=== PATIENT | female | born 1955 | race Caucasian/White ===

== ENCOUNTER 2018-07-07 18:31 | Inpatient (IN) | payer OTHER, MEDICAID | END 2018-07-09 11:36 | disposition home or self-care (01) | LOC: ER 18:31 → PCU 3S 22:06 | DX: E11.10 Type 2 diabetes mellitus with ketoacidosis without coma (principal); N17.9 Acute kidney failure, unspecified ==

== ENCOUNTER 2018-07-21 08:55 | Emergency (ER) | payer OTHER, MEDICAID ==
[~2018-07-21] VITALS: Ht 182.9 cm; Wt 55.0 kg
[~2018-07-21 08:55] MED LIST: ATOR40TA72 PO; GABA-532 PO; INSU100V11 SQ; LANTUS SQ; VARE1TAB22 PO
[2018-07-21] MEDS ORDERED: ondansetron/PF 4mg/2ml inj IV ONE (09:00)
[2018-07-21] MEDS ORDERED: normal saline 1000ML IV soln IVB ONE (09:00)
[2018-07-21 09:52] LABS: BASOPHILS % (AUTO) 0.2 % (0-1); EOSINOPHILS % (AUTO) 0.1 % (0-6); HEMATOCRIT 43.2 % (35.0-45.0); HEMOGLOBIN 14.8 g/dl (12.0-16.0); LYMPHOCYTES # (AUTO) 0.7 X10'3 (1.1-4.8); LYMPHOCYTES % (AUTO) 4.8 % (21-51); MEAN CORPUSCULAR HEMOGLOBIN 32.4 PG (27.0-31.0); MEAN CORPUSCULAR HGB CONC 34.4 g/dL (33.0-36.5); MEAN CORPUSCULAR VOLUME 94.4 FL (78-98); MEAN PLATELET VOLUME 7.6 FL (7.4-10.4); MONOCYTES # (AUTO) 0.3 X10'3 (0-0.9); MONOCYTES % (AUTO) 1.8 % (2-12); NEUTROPHILS # (AUTO) 13.4 X10'3 (1.8-7.7); NEUTROPHILS % (AUTO) 93.1 % (42-75); PLATELET COUNT 444 X10'3 (140-440); RED BLOOD COUNT 4.58 X10'6 (4.20-5.60); WHITE BLOOD COUNT 14.4 X10'3 (4.5-11.0)
[2018-07-21] MEDS ORDERED: insulin regular, human 10 units/0.1 ml syringe IV ONE (09:55)
--- NOTE | 2018-07-21 09:56 | NUR ---
dr muller ordered to dc [facility] at this time.
[2018-07-21 10:05] LABS: ALANINE AMINOTRANSFERASE 34 U/L (12-78); ALBUMIN 3.3 G/DL (3.4-5.0); ALKALINE PHOSPHATASE 94 IU/L (46-116); ANION GAP 10 (8-16); ASPARTATE AMINO TRANSFERASE 16 U/L (10-37); BILIRUBIN,TOTAL 0.5 MG/DL (0.1-1.0); BLOOD UREA NITROGEN 11 MG/DL (7-18); BUN/CREATININE RATIO 11.1 (6.6-38.0); CALCIUM 9.1 MG/DL (8.5-10.1); CHLORIDE 105 MMOL/L (99-107); CREATININE 0.99 MG/DL (0.40-0.90); GLUCOSE 260 MG/DL (70-104); LIPASE 488 U/L (73-393); POTASSIUM 3.1 MMOL/L (3.5-5.1); SODIUM 142 MMOL/L (135-145); TOTAL CARBON DIOXIDE 27.3 MMOL/L (24-32); TOTAL PROTEIN 6.5 G/DL (6.4-8.2); eGFR 57 ML/MIN
[2018-07-21] MEDS ORDERED: proCHLORperazine 10 MG/2 ml inj IV ONE (10:25)
[2018-07-21] MEDS ORDERED: potassium Cl 20 mEq SR tablet PO STA (10:52)
[2018-07-21] MEDS ORDERED: morphine 4 MG/ML inj SYRINge IV PRN (11:20)
--- NOTE | 2018-07-21 11:22 | NUR ---
PT STATED PAIN 09/08 CURRENTLY. PT REFUSED ANY PAIN MEDICATION. DR WEBSTER NOTIFIED. STATED WILL WRITE UP DC
[2018-07-21 11:34] VITALS: BP 111/46
[2018-07-22] MEDS ORDERED: GABA-532 PO (14:20)
[2018-07-22] MEDS ORDERED: INSU100C10 SQ (14:20)
[2018-07-22] MEDS ORDERED: INSU100V9 SQ (14:20)
[2018-07-22] MEDS ORDERED: ONDA8TAB12 PO (14:22)
== END 2018-07-21 11:36 | disposition home or self-care (01) ==
LOC: ER 08:56
DX: R11.2 Nausea with vomiting, unspecified (principal); R10.10 Upper abdominal pain, unspecified; E11.9 Type 2 diabetes mellitus without complications; Z88.0 Allergy status to penicillin; Z88.1 Allergy status to other antibiotic agents; Z88.5 Allergy status to narcotic agent; Z79.4 Long term (current) use of insulin; Z79.899 Other long term (current) drug therapy
CPT/HCPCS: 36415; 80053; 82948; 83690; 85025; 85610; 96374; 96375; 99284; J0780; J1815; J2405; J7030

== ENCOUNTER 2018-09-22 01:44 | Outpatient (CLI) | payer OTHER, MEDICAID ==
[~2018-09-22 01:44] MED LIST changes: +INSU100C10 SQ; -INSU100V11 SQ; +INSU100V9 SQ; -LANTUS SQ; +LEVO250T58 PO; +METR500T PO; +ONDA8TAB12 PO; +PANT20TA2 PO
== END 2018-09-22 23:59 | disposition home or self-care (01) ==
LOC: DIABETIC 01:44
PROVIDERS: ATTEND Family Medicine
DX: E11.65 Type 2 diabetes mellitus with hyperglycemia (principal); Z79.4 Long term (current) use of insulin; Z79.899 Other long term (current) drug therapy
CPT/HCPCS: G0108

== ENCOUNTER 2018-10-18 02:42 | Outpatient (CLI) | payer OTHER, MEDICAID | END 2018-10-18 23:59 | disposition home or self-care (01) | LOC: DIABETIC 02:42 | PROVIDERS: ATTEND Family Medicine | DX: E11.65 Type 2 diabetes mellitus with hyperglycemia (principal); Z79.4 Long term (current) use of insulin; Z79.899 Other long term (current) drug therapy | CPT/HCPCS: G0108 ==

== ENCOUNTER 2018-11-18 03:45 | Outpatient (CLI) | payer OTHER, MEDICAID | END 2018-11-18 23:59 | disposition home or self-care (01) | LOC: DIABETIC 03:45 | PROVIDERS: ATTEND Family Medicine | DX: E10.65 Type 1 diabetes mellitus with hyperglycemia (principal); Z79.4 Long term (current) use of insulin; Z79.899 Other long term (current) drug therapy | CPT/HCPCS: G0108 ==

== ENCOUNTER 2019-02-17 01:21 | Outpatient (CLI) | payer OTHER, MEDICAID ==
[~2019-02-17 01:21] MED LIST changes: -ONDA8TAB12 PO; +ONDA8TAB65 PO
== END 2019-02-17 23:59 | disposition home or self-care (01) ==
LOC: DIABETIC 01:21
PROVIDERS: ATTEND Family Medicine
DX: Z79.4 Long term (current) use of insulin (principal); Z79.899 Other long term (current) drug therapy
CPT/HCPCS: G0108

== ENCOUNTER 2019-03-18 20:19 | Emergency (ER) | payer MEDICAID, OTHER ==
[~2019-03-18] VITALS: Ht 167.6 cm; Wt 59.0 kg
[2019-03-18 21:13] LABS: BASOPHILS # (AUTO) 0.1 X10'3 (0-0.2); BASOPHILS % (AUTO) 0.9 % (0-1); EOSINOPHILS # (AUTO) 0.4 X10'3 (0-0.9); EOSINOPHILS % (AUTO) 5.6 % (0-6); HEMATOCRIT 42.4 % (35.0-45.0); HEMOGLOBIN 14.6 g/dl (12.0-16.0); LYMPHOCYTES # (AUTO) 1.5 X10'3 (1.1-4.8); MEAN CORPUSCULAR HEMOGLOBIN 31.6 PG (27.0-31.0); MEAN CORPUSCULAR HGB CONC 34.5 g/dL (33.0-36.5); MEAN CORPUSCULAR VOLUME 91.6 FL (78-98); MEAN PLATELET VOLUME 8.4 FL (7.4-10.4); MONOCYTES # (AUTO) 0.4 X10'3 (0-0.9); MONOCYTES % (AUTO) 5.6 % (2-12); NEUTROPHILS # (AUTO) 4.5 X10'3 (1.8-7.7); NEUTROPHILS % (AUTO) 65.9 % (42-75); PLATELET COUNT 316 X10'3 (140-440); RED BLOOD COUNT 4.62 X10'6 (4.20-5.60); RED CELL DISTRIBUTION WIDTH 13.3 % (11.5-14.5); WHITE BLOOD COUNT 6.9 X10'3 (4.5-11.0)
[2019-03-18 21:29] LABS: ALANINE AMINOTRANSFERASE 26 U/L (12-78); ALBUMIN 3.6 G/DL (3.4-5.0); ALBUMIN/GLOBULIN RATIO 1.1 (1.1-1.5); ALKALINE PHOSPHATASE 164 IU/L (46-116); ANION GAP 5 (8-16); ASPARTATE AMINO TRANSFERASE 17 U/L (10-37); BILIRUBIN,TOTAL 0.3 MG/DL (0.1-1.0); BLOOD UREA NITROGEN 9 MG/DL (7-18); BUN/CREATININE RATIO 11.4 (6.6-38.0); CALCIUM 8.9 MG/DL (8.5-10.1); CHLORIDE 104 MMOL/L (99-107); CREATININE 0.79 MG/DL (0.40-0.90); GLUCOSE 296 MG/DL (70-104); POTASSIUM 4.1 MMOL/L (3.5-5.1); SODIUM 140 MMOL/L (135-145); TOTAL CARBON DIOXIDE 31.2 MMOL/L (24-32); eGFR 74 ML/MIN
[2019-03-18] MEDS ORDERED: CEPH-572 PO (23:13)
[2019-03-18 23:23] VITALS: BP 157/77
== END 2019-03-18 23:25 | disposition home or self-care (01) ==
LOC: ER 20:22
DX: M79.672 Pain in left foot (principal); E11.9 Type 2 diabetes mellitus without complications; Z88.0 Allergy status to penicillin; Z88.1 Allergy status to other antibiotic agents; Z88.5 Allergy status to narcotic agent; Z79.4 Long term (current) use of insulin; Z79.899 Other long term (current) drug therapy
CPT/HCPCS: 36415; 73630; 80053; 85025; 99284

== ENCOUNTER 2019-04-04 04:09 | Outpatient (CLI) | payer OTHER | END 2019-04-04 23:59 | disposition home or self-care (01) | LOC: DIABETIC 04:09 | PROVIDERS: ATTEND Family Medicine | DX: E11.65 Type 2 diabetes mellitus with hyperglycemia (principal) | CPT/HCPCS: G0108 ==

== ENCOUNTER 2019-05-16 04:18 | Outpatient (CLI) | payer OTHER | END 2019-05-16 23:59 | disposition home or self-care (01) | LOC: DIABETIC 04:18 | PROVIDERS: ATTEND Family Medicine | DX: E11.65 Type 2 diabetes mellitus with hyperglycemia (principal) | CPT/HCPCS: G0108 ==

== ENCOUNTER 2019-08-27 15:41 | Emergency (ER) | payer OTHER ==
[~2019-08-27] VITALS: Ht 167.6 cm; Wt 62.7 kg
[2019-08-27] MEDS ORDERED: HYDROcodone/acetaminophen 10/325mg tab PO ONE ×2 (16:10→16:25)
[2019-08-27] MEDS ORDERED: LIDOcaine 5% patch TP ONE (16:25)
[2019-08-27] MEDS ORDERED: HYDR-4353 PO (16:36)
[2019-08-27] MEDS ORDERED: IBUP-1984 PO (16:36)
[2019-08-27 17:09] VITALS: BP 150/81
== END 2019-08-27 17:10 | disposition home or self-care (01) ==
LOC: ER 15:42
DX: M25.551 Pain in right hip (principal); E11.9 Type 2 diabetes mellitus without complications; Z88.0 Allergy status to penicillin; Z88.1 Allergy status to other antibiotic agents; Z88.5 Allergy status to narcotic agent; Z79.4 Long term (current) use of insulin; Z79.899 Other long term (current) drug therapy; W18.39XA Other fall on same level, initial encounter; Y93.89 Activity, other specified; Y92.89 Other specified places as the place of occurrence of the external cause; Y99.8 Other external cause status
CPT/HCPCS: 73502; 99284

== ENCOUNTER 2023-01-05 18:15 | Emergency (ER) | payer BC, MEDICAID ==
[~2023-01-05] VITALS: Ht 167.6 cm; Wt 66.4 kg
[~2023-01-05 18:15] MED LIST changes: +ATOR-2 PO; -ATOR40TA72 PO; +BUPR-317 PO; +ERGO500056 PO; -LEVO250T58 PO; -METR500T PO; -ONDA8TAB65 PO; +PANT20TA18 PO; -PANT20TA2 PO; -VARE1TAB22 PO
[2023-01-05] MEDS ORDERED: normal saline 1000ml 1,000 ML IV ONE (18:35)
[2023-01-05 19:31] LABS: BASOPHILS # (AUTO) 0.1 X10'3 (0-0.2); BASOPHILS % (AUTO) 0.7 % (0-1); EOSINOPHILS % (AUTO) 0.2 % (0-6); HEMATOCRIT 41.5 % (35.0-45.0); HEMOGLOBIN 14.3 g/dl (12.0-16.0); LYMPHOCYTES # (AUTO) 0.7 X10'3 (1.1-4.8); LYMPHOCYTES % (AUTO) 6.1 % (21-51); MEAN CORPUSCULAR HEMOGLOBIN 31.6 PG (27.0-31.0); MEAN CORPUSCULAR HGB CONC 34.5 g/dL (33.0-36.5); MEAN CORPUSCULAR VOLUME 91.7 FL (78-98); MEAN PLATELET VOLUME 8.9 FL (7.4-10.4); MONOCYTES # (AUTO) 0.2 X10'3 (0-0.9); MONOCYTES % (AUTO) 1.4 % (2-12); NEUTROPHILS % (AUTO) 91.6 % (42-75); PLATELET COUNT 380 X10'3 (140-440); RED BLOOD COUNT 4.53 X10'6 (4.20-5.60); RED CELL DISTRIBUTION WIDTH 13.8 % (11.5-14.5)
[2023-01-05 19:32] LABS: ACETONE NEGATIVE (NEGATIVE)
[2023-01-05 19:35] LABS: ALANINE AMINOTRANSFERASE 21 U/L (12-78); ALBUMIN/GLOBULIN RATIO 1.2 (1.1-1.5); ALKALINE PHOSPHATASE 159 IU/L (46-116); ANION GAP 12 (8-16); ASPARTATE AMINO TRANSFERASE 19 U/L (10-37); BILIRUBIN,TOTAL 0.7 MG/DL (0.1-1.0); BLOOD UREA NITROGEN 23 MG/DL (7-18); BUN/CREATININE RATIO 13.5 (10.0-20.0); CALCIUM 9.7 MG/DL (8.5-10.1); CHLORIDE 96 MMOL/L (99-107); CREATININE 1.71 MG/DL (0.40-0.90); LIPASE 11 U/L (16-77); MAGNESIUM 1.8 MG/DL (1.5-2.4); POTASSIUM 4.6 MMOL/L (3.5-5.1); SODIUM 134 MMOL/L (135-145); TOTAL CARBON DIOXIDE 26.3 MMOL/L (24-32); TOTAL PROTEIN 7.4 G/DL (6.4-8.2); eGFR 30 ML/MIN
[2023-01-05 19:45] LABS: GLUCOSE 440 MG/DL (70-104)
[2023-01-05 23:42] LABS: ABG BASE EXCESS -0.4 mmol/L (-2.0-2.0); ABG HCO3 22.4 mmol/L (22.0-26.0); ABG OXYGEN SATURATION 97.2 % (94-97); ABG PCO2 (T) 31.5 mmHg (32.0-45.0); ABG PH (T) 7.469 (7.350-7.450); FCOHb 0.4 % (0.0-3.9); FHHb 2.8 % (0.0-5.0); FMetHb 0.3 % (0.0-1.5); FO2Hb 96.5 % (94-97); MODE ROOM AIR; PATIENT TEMPERATURE 36.5; TOTAL HEMOGLOBIN 15.4 G/dl (12.0-16.0)
[2023-01-06] MEDS ORDERED: insulin Lispro (HumaLOG) vial - multi-dose SQ ONE ×2 (00:20→02:10)
[2023-01-06] MEDS ORDERED: ondansetron/PF 4mg/2ml inj IV ONE (00:40)
[2023-01-06] MEDS ORDERED: normal saline 500ml IV soln 500 ML IV ONE (02:10)
--- NOTE | 2023-01-06 03:29 | NUR ---
MESSAGE LEFT WITH CAREGIVER TO ARRANGE TRANSPORT HOME
[2023-01-06 03:30] VITALS: BP 145/63; PULSE 68; TEMP 98.3; O2SAT 100
--- NOTE | 2023-01-06 04:07 | NUR ---
SECOND ATTEMPT TO CALL PTS CAREGIVER, MESSAGE LEFT. WAS ABLE TO REACH PTS DAUGHTER SHAMA WHO LIVES IN [facility] AND STATES SHE WILL TRY TO CALL LOCAL FAMILY TO SECURE A RIDE HOME FOR PT
--- NOTE | 2023-01-06 04:28 | NUR ---
CALL RECEIVED FROM PTS DAUGHTER, BYRONSIN CHECO TORRES WILL PICK PT UP
[2023-01-06 04:29] VITALS: RESP 16
== END 2023-01-06 05:07 | disposition home or self-care (01) ==
LOC: ER 18:15
DX: E11.65 Type 2 diabetes mellitus with hyperglycemia (principal); Z88.0 Allergy status to penicillin; Z88.5 Allergy status to narcotic agent; Z79.899 Other long term (current) drug therapy
CPT/HCPCS: 36415; 36600; 80053; 82009; 82803; 82948; 83690; 83735; 85018; 85025; 96361; 96372; 96374; 99284; J1815; J2405; J7030; J7040

== ENCOUNTER 2023-01-06 12:02 | Emergency (ER) | payer BC, MEDICAID ==
[~2023-01-06] VITALS: Ht 167.6 cm; Wt 67.0 kg
[2023-01-06 12:22] VITALS: TEMP 98.1
--- NOTE | 2023-01-06 12:43 | NUR ---
pt does not know the year, acting more confused according to ems and friends. Pt lives alone. Dr. fry will be shortly. He wants basic labs and a urine. He will evaulate if need for CT head.
[2023-01-06 13:22] LABS: BILIRUBIN,URINE SMALL (Neg); CLARITY,URINE CLEAR (Clear); COLOR,URINE YELLOW (Yellow); GLUCOSE, URINE >=1000 mg/dl (Neg); KETONES,URINE 40 mg/dl (Neg); LEUKOCYTE ESTERASE ,URINE NEGATIVE (Neg); NITRITES, URINE NEGATIVE (Neg); OCCULT BLOOD,URINE TRACE-INTACT (Neg); PH,URINE 5.5 (4.8-8.0); PROTEIN,URINE 100 mg/dl (Neg); UROBILINOGEN,URINE 0.2 E.U/dL (0.2-1.0)
[2023-01-06 13:28] LABS: UA COLLECTION TYPE OTHER
[2023-01-06 13:31] LABS: HYALINE CASTS 0-3 /LPF (NEGATIVE)
[2023-01-06 13:32] LABS: BACTERIA,URINE FEW /HPF (Neg); SQUAMOUS EPITHELIAL CELL,UR FEW /LPF (FEW); TRANSITIONAL EPI CELLS,URINE FEW /HPF; WBC,URINE 0-4 /HPF (0-4)
[2023-01-06 14:19] LABS: BASOPHILS # (AUTO) 0.1 X10'3 (0-0.2); BASOPHILS % (AUTO) 0.5 % (0-1); EOSINOPHILS % (AUTO) 0.2 % (0-6); HEMATOCRIT 40.4 % (35.0-45.0); HEMOGLOBIN 13.7 g/dl (12.0-16.0); LYMPHOCYTES # (AUTO) 1.2 X10'3 (1.1-4.8); LYMPHOCYTES % (AUTO) 11.2 % (21-51); MEAN CORPUSCULAR HEMOGLOBIN 31.2 PG (27.0-31.0); MEAN CORPUSCULAR HGB CONC 33.8 g/dL (33.0-36.5); MEAN CORPUSCULAR VOLUME 92.5 FL (78-98); MEAN PLATELET VOLUME 8.7 FL (7.4-10.4); MONOCYTES # (AUTO) 0.5 X10'3 (0-0.9); MONOCYTES % (AUTO) 4.3 % (2-12); NEUTROPHILS # (AUTO) 8.9 X10'3 (1.8-7.7); NEUTROPHILS % (AUTO) 83.8 % (42-75); PLATELET COUNT 367 X10'3 (140-440); RED BLOOD COUNT 4.37 X10'6 (4.20-5.60); RED CELL DISTRIBUTION WIDTH 13.8 % (11.5-14.5); WHITE BLOOD COUNT 10.6 X10'3 (4.5-11.0)
[2023-01-06 14:33] LABS: ALANINE AMINOTRANSFERASE 17 U/L (12-78); ALBUMIN 3.7 G/DL (3.4-5.0); ALBUMIN/GLOBULIN RATIO 1.2 (1.1-1.5); ALKALINE PHOSPHATASE 133 IU/L (46-116); ANION GAP 10 (8-16); ASPARTATE AMINO TRANSFERASE 16 U/L (10-37); BILIRUBIN,TOTAL 0.9 MG/DL (0.1-1.0); BLOOD UREA NITROGEN 32 MG/DL (7-18); BUN/CREATININE RATIO 22.7 (10.0-20.0); CALCIUM 9.2 MG/DL (8.5-10.1); CHLORIDE 99 MMOL/L (99-107); CREATININE 1.41 MG/DL (0.40-0.90); GLUCOSE 322 MG/DL (70-104); POTASSIUM 4.5 MMOL/L (3.5-5.1); SODIUM 134 MMOL/L (135-145); TOTAL CARBON DIOXIDE 25.2 MMOL/L (24-32); TOTAL PROTEIN 6.7 G/DL (6.4-8.2); eCRCL 36 ML/MIN; eGFR 37 ML/MIN
[2023-01-06 15:51] LABS: ACETONE SMALL (NEGATIVE)
[2023-01-06 16:02] VITALS: BP 158/70; PULSE 84; RESP 16; O2SAT 98
== END 2023-01-06 16:43 | disposition home or self-care (01) ==
LOC: ER 12:02
DX: L03.115 Cellulitis of right lower limb (principal); R41.0 Disorientation, unspecified; E10.9 Type 1 diabetes mellitus without complications; Z88.0 Allergy status to penicillin; Z88.1 Allergy status to other antibiotic agents; Z88.5 Allergy status to narcotic agent; Z79.4 Long term (current) use of insulin; Z79.899 Other long term (current) drug therapy
CPT/HCPCS: 36415; 73630; 80053; 81001; 82009; 85025; 99284; C1758